=== PATIENT | male | born 1945 | race Caucasian/White ===

== ENCOUNTER 2019-07-22 13:05 | Outpatient (CLI) | payer MEDICARE, OTHER | END 2019-07-22 13:06 | disposition home or self-care (01) | LOC: RT 13:05 | PROVIDERS: ATTEND Internal Medicine Interventional Cardiology | DX: I35.0 Nonrheumatic aortic (valve) stenosis (principal); R06.02 Shortness of breath | CPT/HCPCS: 94010; 94729 ==